=== PATIENT | female | born 1975 | race Caucasian/White ===

== ENCOUNTER → 2016-08-17 | Day surgery (SDC) | payer BC ==
[2016-08-14 11:59] VITALS: Ht 170.2 cm; Wt 70.5 kg
[~2016-08-17] VITALS: Ht 170.2 cm; Wt 70.5 kg
[~2016-08-17] MED LIST: AZAT50TA17 PO; BUPIVACAINE 0.25% 2.5MG/ML PF 10 ML VIAL ONE; BUPRTAB51 PO; CHOL1TAB42 PO; IOPAMIDOL INJ 61% 15 ML VIAL ONE; LIDOCAINE HCL 1% MPF 5 ML VIAL ONE; MAG PO; MISCCAP80 PO; OMEG10007 PO
--- NOTE | 2016-08-17 14:52 | History & Physical Bridge - [place] ---
H&P Re-Evaluation Bridge Note: I have examined the patient, reviewed the History & Physical and in the interval since the performance of the History & Physical I have noted the following changes of clinical significance: No changes noted
[2016-08-17 15:15] VITALS: TEMP 36.6
[2016-08-17 15:22] VITALS: BP 101/69; PULSE 65; O2SAT 100
--- NOTE | 2016-08-17 15:24 | Discharge Instructions ---
Discharge Instructions Visit Reason for Visit: Sacroiliitis Discharge Discharge Diagnosis / Problem: Low back pain Discharge Goals Goal(s): Decrease discomfort, Improve function Activity Recommendations Activity Limitations: resume your previous activity Anesthesia . Post Anesthesia Instructions: If you have had General Anesthesia or IV Sedation: * Do not drive today. * Resume driving when surgeon permits. * Do not make important decisions or sign legal documents today. * Call surgeon for: 1. Temperature elevations greater than 101 degrees F. 2. Uncontrollable pain. 3. Excessive bleeding. 4. Persistent nausea and vomiting. 5. Medication intolerance (nausea, vomiting or rash). * For nausea and vomiting use only clear liquids such as: tea, soda, bouillon until nausea subsides, then gradually increase diet as tolerated. * If you have any concerns or questions, call your surgeon's office. If physician is unavailable and it is an emergency, call 911 or go to the nearest emergency room. . Diet Recommendations Recommended Home Diet: resume previous diet Procedures Procedures Performed: RIGHT SACROILIAC JOINT INJECTION Pending Studies Studies pending at discharge: no Medical Emergencies . Who to Call and When: Medical Emergencies: If at any time you feel your situation is an emergency, please call 911 immediately. . Non-Emergent Contact Non-Emergency issues call your: Specialist . . "Provider Documentation" section prepared by Juan Carlos Camilo.
--- NOTE | 2016-08-17 15:42 | OPERATIVE REPORT ---
DATE OF OPERATION: 08/17/2016 PREOPERATIVE DIAGNOSIS: Right sacroiliitis, underlying ulcerative colitis. POSTOPERATIVE DIAGNOSIS: Same. PROCEDURE: Right sacroiliac joint injection under fluoroscopic guidance. INDICATIONS FOR PROCEDURE: The patient is a 40-year-old white female who presents today with right sacroiliitis problems, presents today for an injection to provide her with relief as it is not managed to conservative treatment. PHYSICAL EXAMINATION: Pleasant female, seated comfortably. She has point tenderness to palpation of her right SI joint, worse with Rock maneuver and sacral distraction and compression maneuvers. She has normal motor and sensory exam. CONSENT: Verbal and written consent was obtained from the patient. Risks and benefits were reviewed. Risks include but are not limited to infection, allergic reaction. She wishes to proceed. DESCRIPTION OF PROCEDURE: The patient was taken back to the special procedures room of the [facility] where she was maintained in a prone position. Backside was cleansed with Betadine x3 and a dry sterile dressing was applied. Fluoroscope was used to identify the right SI joint. Overlying skin was anesthetized with 3 mL of lidocaine 1% with a 25-gauge 1.5-inch needle. A 25-gauge 3.5-inch spinal needle was then directed under guidance into the SI joint. Isovue-300 contrast 0.25 mL was injected in which showed intraarticular uptake. She then underwent injection after negative aspiration of 40 mg Depo-Medrol and 1.5 mL of bupivacaine 0.25%. Injection was well tolerated. DISPOSITION: 1. The patient was taken out into the discharge recovery area where she will be discharged home once discharge criteria have been met. 2. Follow up in the [facility] office in 2-4 weeks. I attest to the content of the Intraoperative Record and any orders documented therein. Any exceptio ns are noted below.
== END | disposition home or self-care (01) ==
LOC: X.SURG 14:13
PROVIDERS: ATTEND Physical Medicine & Rehabilitation
DX: M46.1 Sacroiliitis, not elsewhere classified (principal); K51.90 Ulcerative colitis, unspecified, without complications; Z98.51 Tubal ligation status; Z80.0 Family history of malignant neoplasm of digestive organs

== ENCOUNTER → 2016-09-11 | Outpatient (CLI) | payer BC ==
[~2016-09-11] MED LIST changes: -BUPIVACAINE 0.25% 2.5MG/ML PF 10 ML VIAL ONE; -IOPAMIDOL INJ 61% 15 ML VIAL ONE; -LIDOCAINE HCL 1% MPF 5 ML VIAL ONE
[2016-09-11 11:13] LABS: BASO % 0.7 %; BASO ABS # 0.05 K/uL (0-0.2); COMPLETE YES; HEMATOCRIT 38.1 % (37-47); IG% 0.1 %; LYMPH % 15.9 %; LYMPH ABS # 1.16 K/uL (1.2-3.4); MEAN CELL VOLUME 88.2 fL (80-100); MEAN CORPUSCULAR HEMOGLOBIN 32.2 pg (25-34); MEAN CORPUSCULAR HGB CONC 36.5 g/dl (32-36); MEAN PLATELET VOLUME 8.9 fL (7.4-10.4); MONO % 4.8 %; NEUT % 60.5 %; PLATELET COUNT 251 K/uL (130-400); RED BLOOD COUNT 4.32 M/uL (4.2-5.4); WHITE BLOOD COUNT 7.29 K/uL (4.8-10.8)
[2016-09-11 12:02] LABS: ALT/SGPT 15 U/L (12-78); AST/SGOT 12 U/L (15-37); CREATININE 0.74 mg/dl (0.60-1.20)
[2016-09-11 12:03] LABS: ALKALINE PHOSPHATASE 56 U/L (45-117)
[2016-09-11 12:20] LABS: URINE APPEARANCE CLEAR (CLEAR); URINE BILIRUBIN NEG (NEG); URINE COLOR YELLOW; URINE NITRITE NEG (NEG); URINE PH 7.5 (4.5-7.5); URINE SPECIFIC GRAVITY 1.003 (1.000-1.030); UROBILINOGEN NEG (NEG)
[2016-09-11 12:27] LABS: MANUAL MICROSCOPIC REQUIRED? NO; REVIEW REQ? NO
[2016-09-14 05:08] LABS: ANTI-CENTROMERE AB <1.0 NEG AI (<1.0 NEG); ANTI-SS-A <1.0 NEG AI (<1.0 NEG); ANTI-SS-B <1.0 NEG AI (<1.0 NEG); DNA ds CRITHIDIA NEGATIVE (NEGATIVE); Sm Antibody <1.0 NEG AI (<1.0 NEG)
== END | disposition home or self-care (01) ==
LOC: C.LAB1850 10:26
PROVIDERS: ATTEND Internal Medicine Rheumatology
DX: Z01.419 Encounter for gynecological examination (general) (routine) without abnormal findings (principal); M32.9 Systemic lupus erythematosus, unspecified; Z79.899 Other long term (current) drug therapy

== ENCOUNTER → 2016-10-12 | Day surgery (SDC) | payer BC ==
[2016-09-29 11:33] VITALS: Ht 170.2 cm; Wt 70.5 kg
[~2016-10-12] VITALS: Ht 170.2 cm; Wt 70.5 kg
[~2016-10-12] MED LIST changes: +BUPIVACAINE 0.25% 2.5MG/ML PF 10 ML VIAL INFIL ONE; +IOPAMIDOL INJ 61% 15 ML VIAL ONE; +LIDOCAINE HCL 1% MPF 5 ML VIAL ONE
[2016-10-12 15:34] VITALS: TEMP 37
--- NOTE | 2016-10-12 15:37 | Discharge Instructions ---
Discharge Instructions Date of Service Oct 12, 2016. Visit Reason for Visit: Sacroiliitis Discharge Discharge Diagnosis / Problem: Low back pain Discharge Goals Goal(s): Decrease discomfort, Improve function Activity Recommendations Activity Limitations: resume your previous activity Anesthesia . Post Anesthesia Instructions: If you have had General Anesthesia or IV Sedation: * Do not drive today. * Resume driving when surgeon permits. * Do not make important decisions or sign legal documents today. * Call surgeon for: 1. Temperature elevations greater than 101 degrees F. 2. Uncontrollable pain. 3. Excessive bleeding. 4. Persistent nausea and vomiting. 5. Medication intolerance (nausea, vomiting or rash). * For nausea and vomiting use only clear liquids such as: tea, soda, bouillon until nausea subsides, then gradually increase diet as tolerated. * If you have any concerns or questions, call your surgeon's office. If physician is unavailable and it is an emergency, call 911 or go to the nearest emergency room. . Diet Recommendations Recommended Home Diet: resume previous diet Procedures Procedures Performed: Right Sacroiliac Joint Injection - Block Pending Studies Studies pending at discharge: no Medical Emergencies . Who to Call and When: Medical Emergencies: If at any time you feel your situation is an emergency, please call 911 immediately. . Non-Emergent Contact Non-Emergency issues call your: Specialist . . "Provider Documentation" section prepared by Juan Carlos Camilo.
[2016-10-12 15:44] VITALS: BP 111/73; PULSE 73; O2SAT 100
--- NOTE | 2016-10-12 15:50 | OPERATIVE REPORT ---
DATE OF OPERATION: 10/12/2016 PREOPERATIVE DIAGNOSIS: Right sacroiliitis. POSTOPERATIVE DIAGNOSIS: Same. PROCEDURE: Right sacroiliac joint block under fluoroscopic guidance. INDICATIONS: The patient is a 41-year-old white female that underwent an SI joint injection on 08/17/2016. 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 It is felt that she is not responsive to steroid injection, but was responsive to the blocks. She presents today to do a second diagnostic block to confirm that this is indeed the pain generator of her right-sided low back pain. PHYSICAL EXAMINATION: Pleasant female seated comfortably. She has point tender to palpation over the SI joint. She has a positive Rock maneuver. No focal weakness of lower extremities. CONSENT: Verbal and written consent was obtained from the patient. Risks and benefits were reviewed. Risks include, but are not limited to abscess and allergic reaction. The patient wishes to proceed. DESCRIPTION OF PROCEDURE: The patient was taken back to the special procedures room of the [facility]. She was maintained in a prone position. Backside was cleansed with Betadine x3 and a dry sterile dressing was applied. Fluoroscope was used to identify the right sacroiliac joint. The overlying skin was anesthetized with 4 mL of lidocaine with a 25-gauge 1.5-inch needle. A 25-gauge 3.5-inch spinal needle was then directed into the joint. There was discomfort as it entered the joint. Isovue-300 contrast 0.25 of a mL was injected, in which she demonstrated intraarticular uptake. She then underwent injection after negative aspiration of 2.5 mL of bupivacaine 0.25% only. DISPOSITION: 1. The patient is taken out into the discharge recovery area, where she will be discharged home once discharge criteria have been met. 2. Follow up in the [facility] office in 2-4 weeks. She has been asked to keep a pain diary for the next 2 days to determine the efficacy of the block. I attest to the content of the Intraoperative Record and any orders documented therein. Any exceptio ns are noted below.
== END | disposition home or self-care (01) ==
LOC: X.SURG 14:16
PROVIDERS: ATTEND Physical Medicine & Rehabilitation
DX: M46.1 Sacroiliitis, not elsewhere classified (principal)

== ENCOUNTER → 2016-10-25 | Outpatient (CLI) | payer BC ==
[~2016-10-25] MED LIST changes: -BUPIVACAINE 0.25% 2.5MG/ML PF 10 ML VIAL INFIL ONE; -IOPAMIDOL INJ 61% 15 ML VIAL ONE; -LIDOCAINE HCL 1% MPF 5 ML VIAL ONE
== END | disposition home or self-care (01) ==
LOC: C.PAPS 08:42
PROVIDERS: ATTEND Physician Assistant Medical
DX: Z12.4 Encounter for screening for malignant neoplasm of cervix (principal)

== ENCOUNTER → 2016-11-07 | Outpatient (CLI) | payer BC ==
[2016-11-07 10:12] LABS: CHOLESTEROL/HDL RATIO 1.9; THYROID STIMULATING HORMONE 1.67 uIu/ml (0.300-4.500)
== END | disposition home or self-care (01) ==
LOC: C.LAB1850 07:06
PROVIDERS: ATTEND Physician Assistant Medical
DX: Z00.00 Encounter for general adult medical examination without abnormal findings (principal); F32.9 Major depressive disorder, single episode, unspecified

== ENCOUNTER → 2016-12-11 | Outpatient (CLI) | payer BC ==
[2016-12-11 12:32] LABS: BASO % 0.9 %; BASO ABS # 0.07 K/uL (0-0.2); COMPLETE YES; EOS % 20.9 %; HEMATOCRIT 39.2 % (37-47); LYMPH % 14.7 %; LYMPH ABS # 1.14 K/uL (1.2-3.4); MEAN CELL VOLUME 91.8 fL (80-100); MEAN CORPUSCULAR HEMOGLOBIN 32.6 pg (25-34); MEAN CORPUSCULAR HGB CONC 35.5 g/dl (32-36); MEAN PLATELET VOLUME 9.4 fL (7.4-10.4); MONO % 5.9 %; NEUT % 57.6 %; PLATELET COUNT 231 K/uL (130-400); RED BLOOD COUNT 4.27 M/uL (4.2-5.4); WHITE BLOOD COUNT 7.76 K/uL (4.8-10.8)
[2016-12-11 12:33] LABS: URINE APPEARANCE CLEAR (CLEAR); URINE BILIRUBIN NEG (NEG); URINE COLOR DK YELLOW; URINE EPITHELIAL CELL AUTO 0-5 /lpf (0-5); URINE NITRITE NEG (NEG); URINE SPECIFIC GRAVITY 1.006 (1.000-1.030); UROBILINOGEN NEG (NEG)
[2016-12-11 12:39] LABS: MANUAL MICROSCOPIC REQUIRED? NO; REVIEW REQ? NO
[2016-12-11 13:17] LABS: ALT/SGPT 23 U/L (12-78); CREATININE 0.92 mg/dl (0.60-1.20)
[2016-12-11 13:19] LABS: ALKALINE PHOSPHATASE 47 U/L (45-117); AST/SGOT 23 U/L (15-37)
[2016-12-16 02:44] LABS: ANTI-CENTROMERE AB <1.0 NEG AI (<1.0 NEG); ANTI-SS-A <1.0 NEG AI (<1.0 NEG); ANTI-SS-B <1.0 NEG AI (<1.0 NEG); DNA ds CRITHIDIA NEGATIVE (NEGATIVE); Sm Antibody <1.0 NEG AI (<1.0 NEG)
== END | disposition home or self-care (01) ==
LOC: C.LAB1850 09:54
PROVIDERS: ATTEND Internal Medicine Rheumatology
DX: M32.9 Systemic lupus erythematosus, unspecified (principal); Z79.899 Other long term (current) drug therapy; K50.90 Crohn's disease, unspecified, without complications

== ENCOUNTER → 2017-01-12 | Day surgery (SDC) | payer BC ==
[2016-12-21 15:46] VITALS: Ht 170.2 cm; Wt 70.5 kg
[~2017-01-12] VITALS: Ht 170.2 cm; Wt 70.5 kg
[~2017-01-12] MED LIST changes: +ATROPINE SULFATE 0.1 MG/ML 5ML SYR IV PRN; +DEXAMETHASONE SOD INJ 4 MG/ML VIAL ONE; +EpHEDrine SULFATE INJ 50 MG/ML AMP IV PRN; +FENTANYL CITRATE INJ 50 MCG/1 ML 2 ML VIAL IV PRN; +FENTANYL CITRATE INJ 50 MCG/1 ML 2 ML VIAL ONE; +LACTATED RINGER'S 1000ML 1,000 ML IV SCH; +LIDOCAINE HCL 1% 20 ML VIAL ONE; +LIDOCAINE HCL 2% 2 ML VIAL (20MG/ML) ONE; +MIDAZOLAM HCL 1 MG/ML 2ML VIAL ONE; +ONDANSETRON INJ 2 MG/ML 2 ML VIAL IV PRN; +ONDANSETRON INJ 2 MG/ML 2 ML VIAL ONE; +PROPOFOL IV EMULSION 10 MG/ML 20 ML VIAL IV ONE
[2017-01-12 11:57] VITALS: TEMP 37
--- NOTE | 2017-01-12 11:57 | Discharge Instructions ---
Discharge Instructions Date of Service Jan 12, 2017. Visit Reason for Visit: Sacroiliitis Discharge Discharge Diagnosis / Problem: low back pain Discharge Goals Goal(s): Decrease discomfort, Improve function Activity Recommendations Activity Limitations: resume your previous activity Anesthesia . Post Anesthesia Instructions: If you have had General Anesthesia or IV Sedation: * Do not drive today. * Resume driving when surgeon permits. * Do not make important decisions or sign legal documents today. * Call surgeon for: 1. Temperature elevations greater than 101 degrees F. 2. Uncontrollable pain. 3. Excessive bleeding. 4. Persistent nausea and vomiting. 5. Medication intolerance (nausea, vomiting or rash). * For nausea and vomiting use only clear liquids such as: tea, soda, bouillon until nausea subsides, then gradually increase diet as tolerated. * If you have any concerns or questions, call your surgeon's office. If physician is unavailable and it is an emergency, call 911 or go to the nearest emergency room. . Diet Recommendations Recommended Home Diet: resume previous diet Procedures Procedures Performed: Right Sacroiliac Joint Radio Frequency Cooled Denervation Pending Studies Studies pending at discharge: no Medical Emergencies . Who to Call and When: Medical Emergencies: If at any time you feel your situation is an emergency, please call 911 immediately. . Non-Emergent Contact Non-Emergency issues call your: Specialist . . "Provider Documentation" section prepared by Juan Carlos Camilo. .
--- NOTE | 2017-01-12 12:06 | Anesthesia Progress Nt - [facility] ---
Anesthesia Post Op Note Date & Time Jan 12, 2017 at 12:06 Vital Signs Pain Intensity: 0 Vital Signs Past 12 Hours Date Time Temp Pulse Resp B/P (MAP) Pulse Ox O2 Delivery O2 Flow Rate FiO2 01/12/17 11:57 37.0 52 16 104/67 (79) 99 Room Air 01/12/17 10:01 36.7 64 16 99/66 (77) 99 Room Air Notes Mental Status: alert / awake / arousable, participated in evaluation Pt Amnestic to Procedure: Yes Nausea / Vomiting: adequately controlled Pain: adequately controlled Airway Patency, RR, SpO2: stable & adequate BP & HR: stable & adequate Hydration State: stable & adequate Anesthetic Complications: no major complications apparent
[2017-01-12 12:14] VITALS: BP 99/64; PULSE 48; O2SAT 100
--- NOTE | 2017-01-12 13:22 | OPERATIVE REPORT ---
DATE OF OPERATION: 01/12/2017 PREOPERATIVE DIAGNOSIS: Right sacroiliitis. POSTOPERATIVE DIAGNOSIS: Same. PROCEDURE: Right sacroiliac joint cooled denervation. INDICATIONS FOR PROCEDURE: The patient is a 41-year-old white female who has underwent successful blocks, but they are not long lasting for the SI pain. She presents today for a denervation to provide him with longer lasting relief for pain that has not responded to conservative treatment. PHYSICAL EXAMINATION: Pleasant female seated comfortably. She has some tenderness to palpation of her right SI joint, worse with extension. She has normal motor and sensory exam. CONSENT: Verbal and written consent was obtained from the patient. Risks and benefits were reviewed. Risks include but are not limited to abscess, allergic reaction, and denervation. She wishes to proceed. DESCRIPTION OF PROCEDURE: The patient was taken back into OR #1 of the [facility] where she was maintained in a prone position. Backside was cleansed with Betadine x3 and a dry sterile dressing was applied. She had conscious sedation throughout the procedure but was able to converse freely. Fluoroscope was used to identify the right side of the sacrum. Overlying skin in the S1 region was anesthetized with 5 mL of lidocaine 1% and the overlying skin between the S2 and S3 foramen was anesthetized with 3 mL of lidocaine 1% with a 25-gauge 1.5-inch needle. A denervation cooling needle was then placed in 8 spots along the right sacroiliac joint at separate sites undergoing 2 minutes and 30 seconds of cooling to 60 degrees, first at the right sacral ala, the right superior lateral S1 foramen, the right lateral S1 foramen, the right inferior lateral S1 foramen, the right superior lateral S2 foramen, the right lateral S2 foramen, the right inferior lateral S2 foramen and the right superior lateral aspect S3 foramen. Denervation was well tolerated. DISPOSITION: 1. She is taken out into the discharge recovery area where she will be discharged home once discharge criteria have been met. 2. Follow up in the [facility] office in 4 weeks' time. I attest to the content of the Intraoperative Record and any orders documented therein. Any exception s are noted below.
== END | disposition home or self-care (01) ==
LOC: X.SURG 09:57
PROVIDERS: ATTEND Physical Medicine & Rehabilitation
DX: M46.1 Sacroiliitis, not elsewhere classified (principal)

== ENCOUNTER → 2017-01-16 | Outpatient (CLI) | payer BC ==
[~2017-01-16] MED LIST changes: -ATROPINE SULFATE 0.1 MG/ML 5ML SYR IV PRN; -DEXAMETHASONE SOD INJ 4 MG/ML VIAL ONE; -EpHEDrine SULFATE INJ 50 MG/ML AMP IV PRN; -FENTANYL CITRATE INJ 50 MCG/1 ML 2 ML VIAL IV PRN; -FENTANYL CITRATE INJ 50 MCG/1 ML 2 ML VIAL ONE; -LACTATED RINGER'S 1000ML 1,000 ML IV SCH; -LIDOCAINE HCL 1% 20 ML VIAL ONE; -LIDOCAINE HCL 2% 2 ML VIAL (20MG/ML) ONE; -MIDAZOLAM HCL 1 MG/ML 2ML VIAL ONE; -ONDANSETRON INJ 2 MG/ML 2 ML VIAL IV PRN; -ONDANSETRON INJ 2 MG/ML 2 ML VIAL ONE; -PROPOFOL IV EMULSION 10 MG/ML 20 ML VIAL IV ONE
--- NOTE | 2017-01-17 13:04 | MAMMOGRAPHY REPORT ---
BILATERAL DIGITAL SCREENING MAMMOGRAM TOMOSYNTHESIS WITH CAD: 01/16/2017 CLINICAL HISTORY: Routine screening. TECHNIQUE: Breast tomosynthesis in addition to standard 2D mammography was performed. Current study was also evaluated with a Computer Aided Detection (CAD) system. COMPARISON: Comparison is made to exams dated: 11/05/2015 ultrasound and 11/05/2015 mammogram - . BREAST COMPOSITION: The tissue of both breasts is heterogeneously dense, which may obscure small mas ses. FINDINGS: The parenchymal pattern is unchanged. No developing mass, architectural distortion or clus ter of suspicious microcalcifications is seen in either breast. IMPRESSION: ACR BI-RADS CATEGORY 2: BENIGN There is no mammographic evidence of malignancy. A 1 year screening mammogram is recommended. The pa tient will receive written notification of the results. Approximately 10% of breast cancers are not detected with mammography. A negative mammographic report should not delay biopsy if a clinically suggestive mass is present. Faby Hobson M.D. ay/:01/16/2017 16:28:02 [employer]: Raiza Bhakta RT(R)(M), letter sent: Normal 1/2 BI-RADS Code: ACR BI-RADS Category 2: Benign
== END | disposition home or self-care (01) ==
LOC: C.MAMM 15:46
PROVIDERS: ATTEND Physician Assistant Medical
DX: Z12.31 Encounter for screening mammogram for malignant neoplasm of breast (principal)

== ENCOUNTER → 2017-02-27 | Outpatient (CLI) | payer BC ==
--- NOTE | 2017-02-27 15:04 | DIAGNOSTIC IMAGING REPORT ---
(CHEST) THORAX WITHOUT CT DOSE: 214.43 mGycm HISTORY: Pulmonary nodule R91.1 Solitary pulmonary [id number] TECHNIQUE: Multiaxial CT images of the chest were performed without contrast. A dose lowering technique was utilized adhering to the principles of ALARA. COMPARISON: 03/22/2016 FINDINGS: Unchanging 4.5 mm nodular density left pulmonary apex. No new or interval nodules. No significant mediastinal or hilar adenopathy. Lungs are considered clear. IMPRESSION: 1. Unchanged small nodule left pulmonary apex. 2. Given the stability over several prior studies this is considered benign. 3. No further follow-up is recommended. The above report was generated using voice recognition software. It may contain grammatical, syntax or spelling errors. Electronically signed by: Gilles Velazco M.D. 02/27/2017 3:03 PM Dictated Date/Time: 02/27/2017 3:00 PM
== END | disposition home or self-care (01) ==
LOC: C.CTS 14:41
PROVIDERS: ATTEND Physician Assistant Medical
DX: R91.1 Solitary pulmonary nodule (principal)

== ENCOUNTER → 2017-04-11 | Outpatient (CLI) | payer BC | END | disposition home or self-care (01) | LOC: C.PATHSPEC 12:52 | PROVIDERS: ATTEND Plastic Surgery | DX: L98.9 Disorder of the skin and subcutaneous tissue, unspecified (principal) ==

== ENCOUNTER → 2017-05-15 | Outpatient (CLI) | payer BC ==
[2017-05-15 16:42] LABS: BASO % 0.6 %; BASO ABS # 0.06 K/uL (0-0.2); COMPLETE YES; EOS % 14.5 %; HEMATOCRIT 36.5 % (37-47); IG% 0.2 %; LYMPH ABS # 1.28 K/uL (1.2-3.4); MEAN CELL VOLUME 89.2 fL (80-100); MEAN CORPUSCULAR HEMOGLOBIN 32.3 pg (25-34); MEAN CORPUSCULAR HGB CONC 36.2 g/dl (32-36); MONO % 5.2 %; NEUT % 66.5 %; PLATELET COUNT 242 K/uL (130-400); RED BLOOD COUNT 4.09 M/uL (4.2-5.4); WHITE BLOOD COUNT 9.88 K/uL (4.8-10.8)
[2017-05-15 17:13] LABS: ALT/SGPT 15 U/L (12-78); AST/SGOT 13 U/L (15-37); CREATININE 0.71 mg/dl (0.60-1.20)
[2017-05-15 17:15] LABS: ALKALINE PHOSPHATASE 60 U/L (45-117)
[2017-05-15 17:29] LABS: URINE APPEARANCE CLEAR (CLEAR); URINE BILIRUBIN NEG (NEG); URINE COLOR YELLOW; URINE NITRITE NEG (NEG); URINE PH 6.5 (4.5-7.5); URINE SPECIFIC GRAVITY 1.013 (1.000-1.030); UROBILINOGEN NEG (NEG)
[2017-05-15 17:33] LABS: MANUAL MICROSCOPIC REQUIRED? NO; REVIEW REQ? NO
== END | disposition home or self-care (01) ==
LOC: C.LAB1850 15:31
PROVIDERS: ATTEND Internal Medicine Rheumatology
DX: M32.9 Systemic lupus erythematosus, unspecified (principal); Z51.81 Encounter for therapeutic drug level monitoring; Z79.899 Other long term (current) drug therapy

== ENCOUNTER → 2017-09-19 | Outpatient (CLI) | payer OTHER ==
[2017-09-19 12:07] LABS: BASO % 0.8 %; BASO ABS # 0.08 K/uL (0-0.2); EOS % 17.3 %; EOS ABS # 1.71 K/uL (0-0.5); HEMATOCRIT 39.9 % (37-47); HEMOGLOBIN 14.1 g/dL (12.0-16.0); IG# 0.03 K/uL (0.00-0.02); LYMPH % 13.2 %; LYMPH ABS # 1.31 K/uL (1.2-3.4); MEAN CELL VOLUME 91.3 fL (80-100); MEAN CORPUSCULAR HEMOGLOBIN 32.3 pg (25-34); MEAN CORPUSCULAR HGB CONC 35.3 g/dl (32-36); MEAN PLATELET VOLUME 9.1 fL (7.4-10.4); MONO % 6.2 %; MONO ABS # 0.61 K/uL (0.11-0.59); NEUT % 62.2 %; NEUT ABS # 6.16 K/uL (1.4-6.5); PLATELET COUNT 263 K/uL (130-400); RED CELL DISTRIBUTION WIDTH CV 13.6 % (11.5-14.5); RED CELL DISTRIBUTION WIDTH SD 44.8 fL (36.4-46.3)
[2017-09-19 12:37] LABS: CREATININE 0.84 mg/dl (0.60-1.20)
== END | disposition home or self-care (01) ==
LOC: C.LAB1850 10:15
PROVIDERS: ATTEND Internal Medicine Rheumatology
DX: Z51.81 Encounter for therapeutic drug level monitoring (principal); M32.9 Systemic lupus erythematosus, unspecified; J45.909 Unspecified asthma, uncomplicated; Z79.899 Other long term (current) drug therapy